=== PATIENT | male | born 1995 | race Caucasian/White ===

== ENCOUNTER 2022-01-07 18:33 | Emergency (ER) | payer MEDICAID, SELFPAY ==
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
[2022-01-07 20:11] VITALS: BP 133/97; PULSE 92; RESP 18; TEMP 36.9; O2SAT 99; BMI 25.8
[2022-01-07] MEDS: Diphth,Pertus(ACell),Tet Adult 0.5 ML SYRINGE IM (23:54)
[2022-01-07] MEDS: Lidocaine HCl 1 % MPF 2 ML VIAL INFILTRATI ×4 (23:55)
[2022-01-08 00:06] VITALS: BP 110/76; PULSE 94; RESP 18; TEMP 36.9; O2SAT 98
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
[2022-01-08] MEDS: cephALEXin 500 MG CAPSULE PO (01:50)
[2022-01-08] MEDS: Ibuprofen 800 MG TABLET PO (01:50)
== END 2022-01-08 01:54 | disposition home or self-care (01) ==
PROVIDERS: Emergency Provider Internal Medicine; PCP Pediatrics
DX: S01.312A Laceration without foreign body of left ear, initial encounter (principal); S40.219A Abrasion of unspecified shoulder, initial encounter; R51.9 Headache, unspecified; M54.2 Cervicalgia; X93.XXXA Assault by handgun discharge, initial encounter; Y93.9 Activity, unspecified; Y92.9 Unspecified place or not applicable; Y99.9 Unspecified external cause status; Z79.899 Other long term (current) drug therapy
CPT/HCPCS: 12001; 12011; 70450; 90471; 90715; 99283; 99284